=== PATIENT | male | born 1980 | race African-American/Black ===

== ENCOUNTER 2019-08-27 14:36 | Emergency (ER) | payer SELFPAY ==
[~2019-08-27] VITALS: Ht 175.3 cm; Wt 77.5 kg
[2019-08-27] MEDS ORDERED: SODIUM CHLORIDE 0.9% 1,000 ML IV ONE (15:10)
[2019-08-27] MEDS ORDERED: HALOPERIDOL LACTATE 5MG/ML VIAL IM ONE (16:45)
[2019-08-27] MEDS ORDERED: OLANZAPINE 10 MG/VIAL IM ONE (16:45)
[2019-08-27 21:25] LABS: *AMPHETAMINES SCREEN URINE PRESUMTIVE POSITIVE (NEGATIVE); *BARBITURATES SCREEN URINE NEGATIVE (NEGATIVE); *BENZODIAZEPINES SCREEN URINE PRESUMTIVE POSITIVE (NEGATIVE); *COCAINE SCREEN URINE PRESUMTIVE POSITIVE (NEGATIVE); METHADONE URINE SCREEN NEGATIVE (NEGATIVE); OPIATES URINE SCREEN NEGATIVE (NEGATIVE)
[2019-08-27 21:27] LABS: CANNABINOID URINE SCREEN PRESUMTIVE POSITIVE (NEGATIVE); PHENCYCLIDINE URINE SCREEN NEGATIVE (NEGATIVE)
[2019-08-28 00:49] LABS: BASOPHILS % 0.8 % (0.0-2.0); EOSINOPHILS % 6.4 % (0.0-5.0); HEMATOCRIT. 42.8 % (42.0-52.0); HEMOGLOBIN. 14.4 g/dL (14.0-18.0); LYMPHOCYTES % 31.4 % (20.0-50.0); MEAN CORPUSCULAR HEMOGLOBIN 30.3 pg (28.0-32.0); MONOCYTES % 9.2 % (2.0-8.0); NEUTROPHILS % 52.2 % (40.0-76.0); PLATELET 183 x1000/uL (130-400); RED BLOOD CELL COUNT 4.75 mill/uL (4.7-6.1); RED CELL DISTRIBUTION WIDTH 12.7 % (11.6-14.6)
[2019-08-28 00:56] LABS: CHLORIDE 109 mEq/L (98-107)
[2019-08-28 01:00] LABS: ETHANOL BLOOD < 10 mg/dL
[2019-08-28 13:48] VITALS: BP 129/62
== END 2019-08-28 13:51 | disposition home or self-care (01) ==
LOC: ER 14:36
DX: T43.621A Poisoning by amphetamines, accidental (unintentional), initial encounter (principal); T40.5X1A Poisoning by cocaine, accidental (unintentional), initial encounter; R45.1 Restlessness and agitation; Z75.1 Person awaiting admission to adequate facility elsewhere; Z59.0 Homelessness; Y92.488 Other paved roadways as the place of occurrence of the external cause
CPT/HCPCS: 36415; 71045; 80053; 80305; 80320; 83880; 84484; 85025; 93005; 96360; 96361; 96372; 99285; J1630; J3490; J7030; G0480